=== PATIENT | female | born 1985 | race Caucasian/White ===

== ENCOUNTER → 2021-01-09 | Outpatient (CLI) | payer OTHER, SELFPAY ==
[2015-11-08 10:36] VITALS: BMI 35.2
[2021-01-09 16:33] LABS: Absolute Lymphocyte Count 1.75 X10^3/uL (0.83-4.51); Absolute Neutrophil Count 9.7 X10^3/uL (2.0-7.7); Basophil# 0.04 X10^3/uL; Basophil% 0.3 % (0-1); Eosinophil# 0.21 X10^3/uL; Eosinophils% 1.7 % (0-5); Hematocrit 33.9 % (37-47); Hemoglobin 11.4 g/dL (12.0-15.0); Lymphocyte # 1.75 X10^3/ul (4.0); Lymphocyte % 14.2 % (19-41); Mean Corp Hgb Conc 33.6 g/dL (32-36); Mean Corpuscular Volume 92.1 fL (81-99); Mean Platelet Vol. 8.6 fl (6.2-12.0); Monocyte# 0.44 X10^3/uL; Monocyte% 3.6 % (0-10); NRBC Flagged by Analyzer 0 % (0-5); Neutrophil # 9.73 X10^3/uL (2.7-7.7); Platelet Count 219 K/mm3 (150-450); RBC Distribution Width CV 14.5 % (11.6-14.6); RBC Distribution Width SD 48.5 fl (35.1-43.9); Red Blood Count 3.68 M/mm3 (4.2-5.4); White Blood Count 12.3 K/mm3 (4.4-11.0)
[2021-01-09 16:49] LABS: Color, Urine Yellow (Yellow); Glucose, Dipstick Normal (Normal); Ketone-Dipstick Negative (Negative); Leukocyte Esterase-Dipstick Negative /ul (Negative); Nitrite-Dipstick Negative (Negative); Occult Blood-Urine Negative /ul (Negative); Protein-Dipstick Negative (Negative); Urine Bilirubin Dipstick Negative (Negative); Urine Clarity Clear (Clear); Urine Urobilinogen Normal (Normal); Urine pH 6.5 (5.0 - 8.0)
[2021-01-09 16:57] LABS: Thyroid Stim Hormone (TSH) 2.24 uIU/mL (0.358-3.74)
[2021-01-10 09:35] LABS: HIV - WCH Non-Reactive (Nonreactive); Hepatitis B Surface Antigen Non-Reactive (Nonreactive); Hepatitis C Antibody Non-Reactive (Nonreactive); Rubella IgG Reactive (Nonreactive); Syphilis Antibodies Non-reactive
[2021-01-13 07:06] LABS: Chlamydia By Nucleic Acid AMP Negative (Negative)
[2021-01-13 12:34] LABS: Gonococcus By Nucleic Acid AMP Negative (Negative)
[2021-01-15 12:52] LABS: HPV Reflexed? NOT INDICATED
== END | disposition home or self-care (01) ==
PROVIDERS: PCP Family Medicine; Visit Provider Obstetrics & Gynecology
DX: O09.512 Supervision of elderly primigravida, second trimester (principal); Z3A.00 Weeks of gestation of pregnancy not specified
CPT/HCPCS: 36415; 81002; 84443; 85025; 86703; 86762; 86780; 86803; 87340; 87491; 87591; 88175; G0145

== ENCOUNTER 2021-04-19 13:15 | Outpatient (CLI) | payer OTHER, SELFPAY ==
[2015-11-08 10:36] VITALS: BMI 35.2
[2021-04-19 13:27] VITALS: O2SAT 96
[2021-04-19 13:28] VITALS: BP 123/69; PULSE 86
[2021-04-19 13:33] VITALS: BMI 32.9
--- NOTE | 2021-04-19 14:51 | OB.TRI.NOTE ---
HPI - General HPI Narrative JENNY LE, is a 35 F who presents at 35 3/7 weeks gestation with decreased movement. Maternal Data Information DUKE Calculator Estimated Delivery Date Method Current WG Current Estimate 05/21/21 Ultrasound #2 35w 4d Other Estimates 06/04/21 LMP (Uncertain) 33w 4d 06/04/21 Ultrasound #1 33w 4d PFSH PFSH Medical History (Updated 04/19/21 @ 16:[address] Daphne Romeo MD) Uterine rupture during labor Home Medications vit,[id number] [Prenatabs FA ] 1 tab PO DAILY 10/03/14 [History Last Taken 1 Day Ago ~11/10/15] vitamin B complex 1 ea PO DAILY 11/08/15 [History Last Taken 04/19/21] calcium mg PO 04/19/21 [History Last Taken 04/19/21] ferrous sulfate [iron] mg 04/19/21 [History Last Taken 04/19/21] Allergy/AdvReac Type Severity Reaction Status Date / Time No Known Allergies Allergy Verified 04/19/21 13:38 Surgical History (Updated 04/19/21 @ 14:[address] Daphne Romeo MD) Previous section Social History Smoking Status: Never smoker History 6 Elective abortions 0 Hx Para 4 Spontaneous abortions 0 Hx # Term Pregnancies 5 Ectopic pregnancies 0 Hx # Pregnancies 0 Multiple births 0 # of living children 4 Past Pregnancies Del. Date Name GA/Weeks Outcome Route Bth Weight Infant Gen Labor Lgth Anesthesia Del Locatn Provider FOB 03/13/06 Alba live - full term 8lb [address] Rivera 02/13/08 Bong live - full term 8lb 10 oz Male otilia Tanner 11/29/11 Eun still 8lb 15oz Female Moon Leal 10/04/14 Arnulfo live - full term 6lb 6oz Male Malgorzata Graham 11/11/15 Suzy live - full term 7lb 13oz Female Tanya Acuna Delivery Date: 03/13/06 Failed induction of labor. Daphne Grimm Delivery Date: 02/13/08 No notes to display Delivery Date: 11/29/11 uterine rupture, stillbirth Sirisha,Summer Delivery Date: 10/04/14 No notes to display Delivery Date: 11/11/15 No notes to display Visit Details Expected Delivery Route/Plan Betamethasone complete on 04/18/21 Scheduled for 04/23/21 at 36wga for prior hx uterine rupture and current uterine window Plans NST reactive movement reported during observation d/c home NST FHR Rate Baby A Baseline: 130 Variability:: Moderate Accelerations:: 15 x 15 Decelerations:: None NST Reactive:: Yes FHR Category:: Category I Uterine Activity:: 0-3/10
--- NOTE | 2021-04-20 13:02 | OB.TRI.NOTE ---
HPI - General HPI Narrative JENNY EL, is a 35 F who presents at 35 3/7 weeks gestation with c/o decreased movement. Maternal Data Information DUKE Calculator Estimated Delivery Date Method Current WG Current Estimate 05/21/21 Ultrasound #2 35w 4d Other Estimates 06/04/21 LMP (Uncertain) 33w 4d 06/04/21 Ultrasound #1 33w 4d PFSH PFSH Medical History (Updated 04/19/21 @ 16:[address] Daphne Romeo MD) Uterine rupture during labor Home Medications vit,[id number] [Prenatabs FA ] 1 tab PO DAILY 10/03/14 [History Last Taken 1 Day Ago ~11/10/15] vitamin B complex 1 ea PO DAILY 11/08/15 [History Last Taken 04/19/21] calcium mg PO 04/19/21 [History Last Taken 04/19/21] ferrous sulfate [iron] mg 04/19/21 [History Last Taken 04/19/21] Allergy/AdvReac Type Severity Reaction Status Date / Time No Known Allergies Allergy Verified 04/19/21 13:38 Surgical History (Updated 04/19/21 @ 14:[address] Daphne Romeo MD) Previous section Social History Smoking Status: Never smoker History 6 Elective abortions 0 Hx Para 4 Spontaneous abortions 0 Hx # Term Pregnancies 5 Ectopic pregnancies 0 Hx # Pregnancies 0 Multiple births 0 # of living children 4 Past Pregnancies Del. Date Name GA/Weeks Outcome Route Bth Weight Infant Gen Labor Lgth Anesthesia Del Locatn Provider FOB 03/13/06 Alba live - full term 8lb [address] Rivera 02/13/08 Bong live - full term 8lb 10 oz Male otilia Tanner 11/29/11 Eun still 8lb 15oz Female Moon Leal 10/04/14 Arnulfo live - full term 6lb 6oz Male Malgorzata Graham 11/11/15 Suzy live - full term 7lb 13oz Female Tanya Acuna Delivery Date: 03/13/06 Failed induction of labor. Daphne Grimm Delivery Date: 02/13/08 No notes to display Delivery Date: 11/29/11 uterine rupture, stillbirth Sirisha,Summer Delivery Date: 10/04/14 No notes to display Delivery Date: 11/11/15 No notes to display Visit Details Expected Delivery Route/Plan Betamethasone complete on 04/18/21 Scheduled for 04/23/21 at 36wga for prior hx uterine rupture and current uterine window Plans NST reactive movement reported during observation d/c home NST FHR Rate Baby A Baseline: 135 Variability:: Moderate Accelerations:: 15 x 15 Decelerations:: None NST Reactive:: Yes FHR Category:: Category I Uterine Activity:: 0-3/10
== END 2021-04-19 15:25 | disposition home or self-care (01) ==
LOC: WPOUT 13:26 → WP 13:27
PROVIDERS: PCP Family Medicine; Referring Provider Obstetrics & Gynecology; Visit Provider Obstetrics & Gynecology
DX: O36.8130 Decreased fetal movements, third trimester, not applicable or unspecified (principal); O09.523 Supervision of elderly multigravida, third trimester; O09.293 Supervision of pregnancy with other poor reproductive or obstetric history, third trimester; O34.219 Maternal care for unspecified type scar from previous cesarean delivery; Z3A.35 35 weeks gestation of pregnancy
CPT/HCPCS: 59025; 59050; 99218; G0378

== ENCOUNTER 2021-04-23 05:20 | Inpatient (IN) | payer SELFPAY ==
--- NOTE | 2021-04-20 14:10 | PCM.HP.OB ---
HPI - General General Date of Admission: 04/23/21 HPI Narrative JENNY EL, is a 35 F who presents at 36 weeks gestation for scheduled repeat section and bilateral salpingectomy. She has a history of prior uterine rupture and known uterine window this . Maternal Data Information DUKE Calculator Estimated Delivery Date Method Current WG Current Estimate 05/21/21 Ultrasound #2 36w 0d Other Estimates 06/04/21 LMP (Uncertain) 34w 0d 06/04/21 Ultrasound #1 34w 0d PFSH PFSH Medical History (Updated 04/23/21 @ 06:[address] Daphne Romeo MD) Uterine rupture during labor Home Medications vit,[id number] [Prenatabs FA ] 1 tab PO DAILY 10/03/14 [History Last Taken 04/22/21 08:00] vitamin B complex 1 ea PO DAILY 11/08/15 [History Last Taken 04/22/21 08:00] calcium 300 mg PO DAILY 04/19/21 [History Last Taken 04/22/21 12:00] ferrous sulfate [iron] 1 mg PO DAILY 04/19/21 [History Last Taken 04/22/21 12:00] Allergy/AdvReac Type Severity Reaction Status Date / Time No Known Allergies Allergy Verified 04/19/21 13:38 Family History (Updated 04/23/21 @ 06:[address] Daphne Romeo MD) Grandmother Cancer maternal GM ovarian cancer Surgical History (Updated 04/23/21 @ 06:[address] Daphne Romeo MD) History of appendectomy Previous section S/P LASIK surgery of both eyes Social History Smoking Status: Never smoker History 6 Elective abortions 0 Hx Para 5 Spontaneous abortions 0 Hx # Term Pregnancies 5 Ectopic pregnancies 0 Hx # Pregnancies 0 Multiple births 0 # of living children 4 Past Pregnancies Del. Date Name GA/Weeks Outcome Route Bth Weight Infant Gen Labor Lgth Anesthesia Del Locatn Provider FOB 03/13/06 Alba 40 live - full term 8lb 5 oz Female spinal Pomerene Dr. Rivera 02/13/08 Bong 39 live - full term 8lb 10 oz Male spinal Pomererosa Tanner 11/29/11 Odette Fowler 39 still 8lb 15oz Female otilia Leal 10/04/14 Arnulfo 37 live - full term 6lb 6oz Male spinal Tanya Graham 11/11/15 Suzy 37 live - full term 7lb 13oz Female spinal Tanyachristofer Acuna Delivery Date: 03/13/06 Failed induction of labor. Ousmane Delivery Date: 02/13/08 No notes to display Delivery Date: 11/29/11 uterine rupture, stillbirth Delivery Date: 10/04/14 No notes to display Delivery Date: 11/11/15 No notes to display Visit Details Expected Delivery Route/Plan Betamethasone complete on 04/18/21 Plans Admit for section, bilateral tubal sterilization Consents signed 04/16/21 reviewed NST FHR Rate Baby A Baseline: 146 bpm Vital Signs Vital Signs Vital Signs: BP 123/74, P 89, R 16, T 98.0 Physical Exam Const alert, oriented x3 and no apparent distress HEENT normocephalic Resp normal respiratory effort, normal air movement and clear to auscultation bilaterally Cardio regular rate and regular rhythm GI normal to inspection, nondistended, normoactive bowel sounds, soft to palpation, non-tender and non-distended Inspection: gravid Labs Labs Labs: Blood Type A POSITIVE Antibody Screen NEGATIVE Hct 33.7 % (37-47) L Hgb 11.5 g/dL (12.0-15.0) L Syphilis Total Ab Non-reactive Rubella IgG Antibody Reactive (Nonreactive) Hep Bs Antigen Non-Reactive (Nonreactive) Neisseria gonorrhoeae DNA (PAMELA) Negative (Negative) HIV 1&2 Antibody Non-Reactive (Nonreactive) C.trachomatis DNA (PCR) Negative (Negative) Rhogam given: No Antepartum Flow Sheet Highlights: CM 30 Kit 3 35 182 96/60 no no 36 V [facility] Mar 18 33 182 108/72 - - 34 [facility] Mar 1 32 180 108/62 - - 33 11 Mar 32 181 112/70 - - [facility] 08 Mar .1 31 180 118/66 - 2+ 32 V [facility] February 17 28 179 98/64 - - 28 [facility] Jan 18 26 173 112/72 - - 26 [facility] Dec 19 19 166 124/66 - - 20 Assessment & Plan (1) 36 weeks gestation of : (2) Dehiscence (without extension) of old uterine scar before onset of labor, antepartum condition or complication: PLAN: Proceed with repeat section. Consents again reviewed this morning. Discussed sterilization permanence and patient certain desires to proceed. Plan for bilateral salpingectomy.
[2021-04-23] VITALS (19 sets, daily range): BP systolic 95–123; BP diastolic 50–74; PULSE 58–89; RESP 11–18; TEMP 36–36.9; O2SAT 97–100; BMI 33.0
--- NOTE | 2021-04-23 | FALS_PTH ---
PATIENT: JENNY EL LOC: [facility] U#:[id number] AGE/SX: 35/F ROOM: WP001 RE04/23/[address]: Dr. Jin Cook MD : 1985 BED: 1 DIS: 04/25/2021 SPEC #: [id number] RECD: 04/23/21 09:22 STATUS: TYLER REQuique #: [id number] GIGI: 04/23/21 00:[address]: Daphne Friedman DEPT: SURGICAL PATHOLOGY RECD BY: Dajuan Braxton ENTERED: 04/23/21 09:22 SP TYPE: FALL TUBES OTHR DR: MD Dr. Thais Arciniega MD Tissues: Fallopian tube Procedures: Surgery Specimen Level II Comments: @ Ordering doctor for SUII edited from to @ by RGOOD at 04/23/21 1312 @ Submitting doctor edited from to @ by RGOOD at 04/23/21 1312 HEADER OPERATION: Tubal ligation PRE-OP DIAGNOSIS: Sterilization TISSUE SUBMITTED: Fallopian tubes, suture in right fallopian tube MICROSCOPIC DIAGNOSIS Right fallopian tube, salpingectomy: Complete segment of fallopian tube with no pathologic change. Left fallopian tube, salpingectomy: Complete segment of fallopian tube with no pathologic change. AM:farhana 04/24/2021 MICROSCOPIC DESCRIPTION Slides are reviewed. GROSS DESCRIPTION Received in fixative is one container labeled with the patient's name and designated bilateral fallopian tubes, right with suture. The specimen consists of two fallopian tubes with an average length of 6.5 cm and has an average diameter of 0.6 cm. Both fallopian tubes have normal fimbriated ends. No mass lesions are identified. Flaker Tender sections are submitted in two cassettes as follows: 1 - right fallopian tube, 2 - left fallopian tube. / AM:farhana 04/23/21 TC:4 CPT: 68296 x2
[2021-04-23] MEDS: Lactated Ringers 1,000 ML 999 ML IV (05:35)
[2021-04-23 05:50] LABS: Absolute Lymphocyte Count 1.83 X10^3/uL (0.83-4.51); Absolute Neutrophil Count 9.7 X10^3/uL (2.0-7.7); Basophil# 0.04 X10^3/uL; Basophil% 0.3 % (0-1); Eosinophil# 0.14 X10^3/uL; Eosinophils% 1.1 % (0-5); Hematocrit 33.7 % (37-47); Hemoglobin 11.5 g/dL (12.0-15.0); Lymphocyte # 1.83 X10^3/ul (0.83-4.51); Lymphocyte % 14.8 % (19-41); Mean Corp Hgb Conc 34.1 g/dL (32-36); Mean Corpuscular Hgb 31.1 pg (27.0-32.0); Mean Corpuscular Volume 91.1 fL (81-99); Mean Platelet Vol. 8.2 fl (6.2-12.0); Monocyte# 0.47 X10^3/uL; Monocyte% 3.8 % (0-10); NRBC Flagged by Analyzer 0 % (0-5); Neutrophil # 9.69 X10^3/uL (2.7-7.7); Neutrophil % 78.5 % (47-70); Platelet Count 193 K/mm3 (150-450); RBC Distribution Width CV 13.5 % (11.6-14.6); RBC Distribution Width SD 44.6 fl (35.1-43.9); White Blood Count 12.4 K/mm3 (4.4-11.0)
[2021-04-23] MEDS: Lactated Ringers 1,000 ML 150 ML IV ×2 (06:00→11:35)
[2021-04-23] MEDS: Acetaminophen 500 MG Tablet 1000 MG PO ×4 (06:11→23:29)
[2021-04-23] MEDS: Sodium Citrate/Citric Acid 30 ML UDC PO (06:58)
[2021-04-23] MEDS: Cefazolin 2 GM in 0.9% Normal Saline 100 ML IV (07:26)
--- NOTE | 2021-04-23 08:17 | OP.PCM_ITS ---
Assessment & Plan (1) Delivery by section: Maternal Data Information [facility]KE Calculator Estimated Delivery Date Method Current WG Current Estimate 05/21/21 Ultrasound #2 36w 0d Other Estimates 06/04/21 LMP (Uncertain) 34w 0d 06/04/21 Ultrasound #1 34w 0d Details Operative Information Date of Procedure: 04/23/21 Pre-Operative Diagnosis: 1. 36 weeks gestation 2. Prior section x 5 3. Prior Uterine Rupture 4. Uterine window Post-Operative Diagnosis: 1. 36 weeks gestation 2. Prior section x 5 3. Prior Uterine Rupture 4. Uterine window Indications for : Repeat Elective and Desires elective sterilization Classification: Scheduled Procedure Type: bilateral salpingectomy business specialist #1: Jin Cook Type of Anesthesia: Spinal Anesthesiologist: Alfie Hopkins Antibiotic Given: Ancef 2 grams IV x1 Drain: Moreno to straight drain Estimated Blood Loss: 600 ml Fluids Replaced: 1500 ml Findings Description of Procedure: Indications: 35-year-old 6 para 5-0-0-4 admitted at 36 weeks gestational age for scheduled repeat section with known uterine window and a prior history of uterine rupture with loss. The patient also desired tubal sterilization. She was counseled regarding procedural risks, benefits, indications as well as alternative contraception and opted to proceed. Procedure: The patient was taken to the operating room and spinal analgesia was administered. She is placed in a dorsal supine position with left lateral tilt. The perineum and abdomen were prepped and draped in sterile fashion. And the spinal was found to be adequate. A Pfannenstiel incision was made using a scalpel and brought down to incise the subcutaneous tissue and rectus fascia at the midline. Subcutaneous tissue was bluntly dissected off the fascia laterally. The fascial incision was dissected laterally and cephalad using curved Che scissors. The superior leaflet of the rectus fascia was grasped using Opal clamps and bluntly dissected and sharply dissected from the underlying rectus muscle. In a similar fashion the inferior rectus fascia was dissected from the underlying muscle. The rectus muscles were bluntly at the midline. The peritoneum was identified and entered [sharply]. The bladder blade was placed into the abdomen and the vesicouterine peritoneal fold identified. A palpable window was noted inferior to the peritoneal fold in the lower uterine segment that was covered by a dense bladder adhesion. The bladder flap created. Bladder blade was then repositioned to the abdomen. A low transverse hysterotomy was made using the [Metzenbaum scissors] to level of the membranes with clear fluid on rupture. The hysterotomy was extended bluntly cephalad and caudad. The head was elevated and brought to the level of the hysterotomy and the infant delivered revealing vigorous [female] infant. The cord was doubly clamped and cut after 30 seconds. The was passed to awaiting [nursery personnel]. The placenta was [expressed] from the uterus and appeared intact on inspection. The uterus was cleared of debris. The hysterotomy was then repaired using 0 Vicryl running lock suture. A horizontal mattress stitch was placed at the midline the bladder blade was removed. The anterior cul-de-sac was cleared of debris. The peritoneum and rectus muscles were reapproximated using 2-0 Vicryl running suture. The rectus fascia was closed using 0 Vicryl running suture. The skin was closed using 3-0 Monocryl subcuticularly. A Mepilex occlusive dressing was placed over the incision. The fundus was firm. The patient was then transferred to the recovery room without complication. Sponge, instrument, and needle counts were correct ?2. Presentation: Positive for Vertex Amniotic Membrane Rupture Type: Artificial Amniotic Fluid Description: Clear Placental Delivery Description: Spontaneous Placenta Disposition: [facility] Cord Vessel Description: 3 Vessels Cord Entanglement: Around neck x 1, loose Infant A Gender: Female (1 minute): 8 (5 minute): 9 Delayed Cord Clamping: Yes
[2021-04-23] MEDS: Oxytocin 30 units/NS 500 ml 30 UNITS/500 ML IV.SOLN 167 UNITS IV (08:33)
[2021-04-23] MEDS: Ketorolac 30 MG/ML Syringe IV ×3 (08:45→19:49)
[2021-04-23 09:15] LABS: Pathology Specimen OB SEE PATHOLOGY REPORT
[2021-04-23] MEDS: 0.9% Saline Lock 10 ML Syringe IV ×2 (15:11→19:50)
[2021-04-23] MEDS: Lactated Ringers 1,000 ML 100 ML IV (17:47)
[2021-04-24] MEDS: Ketorolac 30 MG/ML Syringe IV (02:30)
[2021-04-24] MEDS: 0.9% Saline Lock 10 ML Syringe IV (02:30)
[2021-04-24 04:15] VITALS: BP 93/45; PULSE 72; RESP 16; TEMP 36.7; O2SAT 99
[2021-04-24 05:27] LABS: Hemoglobin 10.2 g/dL (12.0-15.0); Mean Corp Hgb Conc 32.9 g/dL (32-36); Mean Corpuscular Hgb 30.9 pg (27.0-32.0); Mean Corpuscular Volume 93.9 fL (81-99); Mean Platelet Vol. 8.2 fl (6.2-12.0); Platelet Count 148 K/mm3 (150-450); RBC Distribution Width CV 13.5 % (11.6-14.6); RBC Distribution Width SD 46.7 fl (35.1-43.9); White Blood Count 11.6 K/mm3 (4.4-11.0)
[2021-04-24] MEDS: Acetaminophen 500 MG Tablet 1000 MG PO ×3 (07:09→18:03)
--- NOTE | 2021-04-24 07:30 | PCM.PN.BLA ---
Progress Note Patient special care nursery at this time seeing her baby. Physical exam: Vital signs blood pressure 93/45 pulse 72 respiratory rate 16 temperature 98 SPO2 99% on room air Assessment and plan: Postop day 1 status post repeat section at 36 weeks for uterine window. Baby in special care nursery with apneic episode last night. Will likely be in special care nursery for 5+ days. Patient's hemoglobin stable. We will continue to monitor patient
[2021-04-24 08:00] VITALS: BP 99/67; PULSE 69; RESP 16; TEMP 36; O2SAT 97
[2021-04-24] MEDS: Senna/Docusate Sodium 1 Tablet PO (11:39)
[2021-04-24] MEDS: Ibuprofen 600 MG Tablet PO ×2 (11:40→18:03)
[2021-04-24] MEDS: oxyCODONE 5 MG Tablet PO ×2 (15:57→22:12)
[2021-04-24 15:58] VITALS: BP 110/90; PULSE 72; RESP 16; TEMP 36.3; O2SAT 98
--- NOTE | 2021-04-24 16:07 | NURSING ---
RED AREA NOTED LEFT UPPER ABDOMEN RIGHT ABOVE THE DRESSING
[2021-04-24 19:50] VITALS: BP 106/67; PULSE 77; RESP 15; TEMP 36.1; O2SAT 99
[2021-04-25] MEDS: Ibuprofen 600 MG Tablet PO ×3 (00:01→12:14)
[2021-04-25] MEDS: Acetaminophen 500 MG Tablet 1000 MG PO ×3 (00:01→12:37)
[2021-04-25 01:52] VITALS: BP 101/66; PULSE 73; RESP 15; TEMP 36.4; O2SAT 98
[2021-04-25 07:58] VITALS: BP 104/67; PULSE 70; RESP 18; TEMP 36.5
--- NOTE | 2021-04-25 08:29 | PCM.PN.OB ---
Subjective Subjective No overnight complaints. Pain well controlled. Objective Data Objective Data Vital Signs: Vital Signs Temp Pulse Resp BP Pulse Ox 97.7 F L 70 18 104/67 98 04/25/21 07:58 04/25/21 07:58 04/25/21 07:58 04/25/21 07:58 04/25/21 01:52 Oxygen Delivery Method Room Air Weight: 180 lb 8.937 oz Body Mass Index (BMI) 33.0 Intake & Output: Intake and Output for Last 24 Hours 04/23/21 04/24/21 04/25/21 23:59 23:59 23:59 Intake Total 3635.0 / 3635.0 Output Total 3650 / 3650 Balance -15.0 / -15.0 Lab / Micro Data Result Diagrams: 04/24/21 05:20 Physical Exam Const alert, oriented x3, no apparent distress and average body habitus HEENT normocephalic and moist oral mucous membranes Head and Scalp: atraumatic Face and Sinus: normal facial exam Neck full ROM and no lymphadenopathy Resp normal respiratory effort, no retractions and no use of accessory muscles GI normal to inspection, nondistended, normoactive bowel sounds GI Narrative: Bandage clean dry and intact Extremity normal to inspection, full ROM and no clubbing, cyanosis or edema Skin no rashes or lesions noted Psych mental status grossly normal, affect normal, speech normal and activity/motor behavior normal Assessment & Plan (1) Delivery by section: PLAN: Postoperative day 2 status post repeat section at 36 weeks for uterine window. Pain well controlled. Breast-feeding. Baby in special care nursery. Will discharge today
--- NOTE | 2021-04-25 08:31 | PCM.DC.BLA ---
Discharge Summary Date of Admission: 04/23/21 Date of Discharge: 04/25/21 Summary: Patient arrived for scheduled section on 04/23/2021 at 36 weeks for history of section and uterine window. performed, standard postoperative recovery. Baby went to special care nursery being and had apneic episode. Overall patient's pain well controlled and discharged home on 04/25/2021 Physical Exam Const alert, oriented x3, no apparent distress and average body habitus General Appearance: cooperative, comfortable, well kempt and well developed HEENT normocephalic Eyes PERRL Neck full ROM Resp normal respiratory effort, normal air movement, no retractions and no use of accessory muscles GI normal to inspection, nondistended, normoactive bowel sounds GI Narrative: Bandage clean dry and intact Extremity normal to inspection and full ROM Skin no rashes or lesions noted Psych mental status grossly normal, thought process normal, cooperative, affect normal and speech normal Meaningful Use Info Meaningful Use Diagnoses (Choose all that apply): None applicable Discharge Plan Admission Admit Date/Time: 04/23/21 05:20 Primary Reason for Your Visit: section Attending Provider: Jin Cook Primary Care Provider: Thais Milner Discharge Orders/Prescriptions Prescriptions: New oxycodone 5 mg Tablet 5 mg PO Q6H 4 Days Qty: 16 RF: 0 Continued Prenatabs FA 1 TABLET tablet 1 tab PO DAILY RF: 0 vitamin B complex 1 EACH capsule 1 ea PO DAILY RF: 0 calcium 100 mg Capsule 300 mg PO DAILY RF: 0 ferrous sulfate [iron] 325 mg (65 mg iron) Tablet 1 mg PO DAILY RF: 0 Referrals / Follow Up: Thais Milner MD [Primary Care Provider] - Disposition Disposition (needs filled in before D/C Order can be placed): Home, Self Care
[2021-04-25] MEDS: Senna/Docusate Sodium 1 Tablet PO (12:15)
== END 2021-04-25 12:41 | disposition home or self-care (01) | DRG 785 ==
PROVIDERS: Admitting Provider Obstetrics & Gynecology; PCP Family Medicine; Visit Provider Obstetrics & Gynecology
PROC: (CPT 59514; principal; 2021-04-23 07:15)
DX: O34.219 Maternal care for unspecified type scar from previous cesarean delivery (principal); O34.593 Maternal care for other abnormalities of gravid uterus, third trimester; Z87.59 Personal history of other complications of pregnancy, childbirth and the puerperium; Z3A.36 36 weeks gestation of pregnancy; Z37.0 Single live birth
CPT/HCPCS: 85025; 85027; 86850; 86900; 86901; 86920; 88302; 99218; 99251; J7120; A4216; G0378; G0463